=== PATIENT | male | born 1965 | race Caucasian/White ===

== ENCOUNTER 2024-11-28 14:55 | Inpatient (IN) | payer OTHER, SELFPAY ==
[2024-11-28 10:26] VITALS: BP 147/65
--- NOTE | 2024-11-28 11:39 | ED.MUSCINJ ---
Addendum entered and electronically signed by Horacio Vilchis MD 11/28/24 14:02:
Progressive pain swelling to the right elbow. Over weeks. History of chronic kidney disease.
On exam moderate swelling and warmth to the right elbow mostly posteriorly with some extension to the mid forearm. Able to rotate the elbow without difficulty. Some pain with flexion of the elbow but this appears to be more due to stretching.
Good distal pulses and color.
Impression is relatively low suspicion for septic arthritis. More likely olecranon bursitis/cellulitis. However with patient's significant medical issues warrants IV antibiotics and inpatient management
Original Note:
HPI-Injury
General
Chief Complaint: Musculo-Skeletal Complaint
Source: patient
Time Seen by Provider: 11/28/24 11:04
History of Present Illness-Injury
Initial Injury comments:
59-year-old male insulin-dependent diabetic with chronic kidney disease presents with increasing swelling and pain to the right elbow. He also notes his right leg is swollen. He was sent in by the family doctor. No known injury or trauma to the
elbow. He states it is quite painful to try to flex his elbow. He has a history of gout in his left toe. He notes chills without measurable fever. No vomiting. He is not sleeping because of the pain. No other complaints at this time
Phy Exam
Physical Exam
Physical Exam:
General: Well-appearing male no acute respiratory distress
HEENT: Normocephalic atraumatic
Heart: Regular rate and rhythm
Lungs: Clear
Injury Course
Orders/Labs/Results
Orders:
Orders
11/28/24 11:38
HYDROmorphone [Dilaudid] 0.5 mg IV NOW STA
CR Elbow - Right Min 3 Views Urgent
Comment:
Reason For Exam: pain, swelling
11/28/24 11:44
CRP [C-Reactive Protein] Urgent
Complete Blood Count/With Diff Urgent
Comprehensive Metabolic Panel Urgent
Sed Rate [Erythrocyte Sed Rate] Urgent
Uric Acid Urgent
11/28/24 13:31
Vancomycin [Vancocin] 2,000 mg 0.9% Sodium Chloride 500 ml [Nss] 500 ml IV NOW
Abnormal Lab Results
11/28/24
11:44
RBC 4.20 L 10^6/uL
(4.70-6.10)
Hgb 11.2 L g/dL
(13.0-18.0)
Hct 35.6 L %
(39.0-52.0)
MCH 26.7 L pg
(27.0-31.0)
MCHC 31.5 L g/dL
(33.0-37.0)
RDW 17.2 H %
(11.5-14.5)
MPV 11.2 H fL
(7.4-10.4)
Absolute Neuts (auto) 8.5 H 10^3/uL
(1.4-6.5)
Neutrophils % 78.8 H %
(42.2-75.2)
Lymphocytes % 13.0 L %
(20.5-51.1)
ESR 61 H mm/hour
(0-20)
BUN 40 H mg/dl
(9-20)
Creatinine 2.0 H mg/dL
(0.7-1.3)
Glucose 118 H mg/dl
(70-99)
C-Reactive Protein 69.80 H mg/L
(0.0-10.00)
11/28/24 11:44
11/28/24 11:44
*Pulse Oximetry
SaO2: 94
Oxygen Mode of Delivery: Room air
Patient hypoxic: no
*Critical Care Note
Total Time (30-74mins, 75-104mins- exclusive of procedures): Not Applicable
Update Note
Update Note:
Labs reviewed elevated inflammatory markers. x-ray of the right elbow negative. Exam most concerning for bursitis, olecranon bursitis perhaps with overlying cellulitis. He is insulin-dependent diabetic chronic kidney disease with worsening
symptoms. Discussed with emergency room attending feel up to keep the patient here in the hospital. IV vancomycin ordered.
ED Attending Note
-
Portions of this chart may have been created with voice recognition software.� Occasional wrong word or��sound alike� substitutions may have occurred due to the inherent limitations of voice recognition software.
Discharge Plan
Departure
Patient Disposition: Admit
Date of Disposition: 11/28/24
Time of Disposition: 13:33
Presentation/result/management discussed w/ accepting MD/DO: Hospitalist
Discharge Problem:
Bursitis, olecranon, Cellulitis
Prescriptions:
No Action
pioglitazone 15 MG tablet
15 mg PO DAILY
simvastatin 40 MG tablet
40 mg PO DAILY
metformin 1,000 MG tablet
1,000 mg PO BID
lisinopril-hydrochlorothiazide 1 EACH tablet
1 ea PO DAILY
varenicline tartrate [Chantix Starting Month ] 1 EACH tablets,dose pack
1 ea PO BID
Novolog Mix 70/30:
80 units SC BID
Referrals:
Chester Handley MD [Family Provider, Internal Medicine]
Interventions
Interventions:
*Risk Screen - Suicide Last Done: 11/28/24 10:26
*General Assessment Last Done: 11/28/24 10:26
*Neglect/Abuse Screening Last Done: 11/28/24 10:26
ED-Musculoskeletal Assessment Last Done: 11/28/24 11:50
Discharge Date and Time
Print Language: UKRAINIAN
[2024-11-28] MEDS: DILAUDID 0.5 MG IV ×3 (11:46→20:37)
[2024-11-28 11:53] LABS: Hematocrit 35.6 % (39.0-52.0); Hemoglobin 11.2 g/dL (13.0-18.0); Mean Corp Hgb Conc. 31.5 g/dL (33.0-37.0); Mean Corpuscular Volume 84.8 fL (80.0-94.0); Nucleated Red Blood Cells % 0 % (-); Platelet Count 197 10^3/uL (130-400); Red Cell Dist. Width 17.2 % (11.5-14.5)
[2024-11-28 12:38] LABS: ALT (SGPT) 22 U/L (0-50); AST (SGOT) 17 U/L (17-59); Albumin 3.9 g/dl (3.5-5.0); Alkaline Phosphatase 90 U/L (38-126); Blood Urea Nitrogen 40 mg/dl (9-20); Calcium 9.0 mg/dl (8.4-10.2); Carbon Dioxide 24 mmol/L (22-30); Glucose 118 mg/dl (70-99); Total Protein 6.8 g/dl (6.3-8.2); eGFR 37.27
[2024-11-28 12:40] LABS: C-Reactive Protein 69.80 mg/L (0.0-10.00)
[2024-11-28 13:07] LABS: Chloride 107 mmol/L (98-107); Sodium 142 mmol/L (135-145)
[2024-11-28 13:38] VITALS: BMI 49.8
--- NOTE | 2024-11-28 13:39 | HPS.HSE ---
Family Physician
-
Family Physician: Chester Handley
Chief Complaint
-
right elbown redness and swelling.
History of Present Illness
59-year-old male insulin-dependent diabetic with chronic kidney disease presents with increasing swelling and pain to the right elbow for past few weeks. patient denied any trauma. he rest his arm on chair, when reading books. it progressively got
worse for past few weeks. patient complained of pain radiating to his right shoulder. swelling to right arm. patient is not able to bent his right arm. he is complaining of chills for past few days. denied fever. he complained of ZAMORANO. denied dizzy or
syncope. denied chest pain, sob. denied abdominal pain,n,v,d. denied dysuria or hematuria. He also complained of right lower extremities edema
Patient received a dose of Dilaudid, vancomycin in the ER. Admitting for further manage
Medical History
Past Medical History
Past Medical History: Reports Other
Additional Past Medical History:
Hypertension
Type 2 diabetes
Hyperlipidemia
Gout
Past Surgical History: Reports Other
Additional Past Surgical History:
Amputation of fifth metatarsal right foot
Cholecystic
Appendectomy
Neck fusion
Carpal tunnel
Social History
Tobacco: Former Smoker
Alcohol: Occasional
Drug: None
Family History
Family History: Not pertinent
Allergies / Home Medications
Allergies reflects when Allergies were last updated in [facility].
Home Medications with original date entered in [facility]
Allergy/Medication List:
Allergies
Allergy/AdvReac Type Severity Reaction Status Date / Time
morphine Allergy Itching Verified 11/28/24 10:29
Home Medications
Novolog Mix 70/30: 80 units SC BID 06/13/10
lisinopril 20 mg-hydrochlorothiazide 25 mg tablet 1 ea PO DAILY 06/13/10
metformin 1,000 mg tablet 1,000 mg PO BID 06/13/10
pioglitazone 15 mg tablet 15 mg PO DAILY 06/13/10
simvastatin 40 mg tablet 40 mg PO DAILY 06/13/10
varenicline tartrate 0.5 mg (11)-1 mg (42) tablets in a dose pack (Chantix Starting Month Brian) 1 ea PO BID 06/13/10
Review of Systems
-
Constitutional: Reports No Symptoms
EENT: Reports No Symptoms
Respiratory: Reports No Symptoms
Cardiac: Reports No Symptoms
Abdomen/GI: Reports No Symptoms
: Reports No Symptoms
Musculoskeletal: Reports No Symptoms
Skin: Reports No Symptoms
Neurological: Reports No Symptoms
Endocrine: Reports No Symptoms
Hematologic/Lymphatic: Reports No Symptoms
Psych: Reports No Symptoms
Physical Exam
Vital Signs
Vital Signs
Temp Pulse Resp BP Pulse Ox
98.2 F 90 20 147/65 94
11/28/24 10:26 11/28/24 10:26 11/28/24 10:26 11/28/24 10:26 11/28/24 11:41
Physical Exam
General: Well Developed, Well Nourished and No Apparent Distress
HEENT: NormoCephalic, Moist mucous membranes and Atraumatic
Respiratory: Clear
Cardiac: S1/S2 and Regular Rhythm; No Murmur or Rub
GI: Soft, Non Tender, Non Distended and Normal Bowel Sounds; No Organomegaly
Rectal: Deferred by Provider
Musculoskeletal: No Clubbing, No Cyanosis and No Edema
Skin: Rash and Other (Right elbow swelling and redness)
Neuro: AO x 3 and Nonfocal/grossly intact
Laboratory Results
-
11/28/24 11:44
11/28/24 11:44
Laboratory Results
Total Bilirubin 0.7 mg/dl (0.2-1.3) 11/28/24 11:44
AST 17 U/L (17-59) 11/28/24 11:44
ALT 22 U/L (0-50) 11/28/24 11:44
Alkaline Phosphatase 90 U/L (38-126) 11/28/24 11:44
Data Reviewed
-
Diagnostic Radiology: Report Reviewed by me
Lab Data: Labs Reviewed by me
Impression/Plan
-
# Chronic bursitis/cellulitis of right elbow
# Right lower extremities edema
- IV vancomycin in the ER
-elbow x ray with no acute findings
- IV Ancef continued
- Tylenol as needed for fever or pain
- Obtain duplex of lower extremities
#acute kidney injury likely CKD
-cr 2.0
- Continue to monitor
# Type 2 diabetes
- regular 120 unit daily in am 50units lunch and 30pm
- Sliding scale
- Carb controlled diet
# Hyperlipidemia
- Hypertension
-asa, statin, doxazosin continued
-hold lisinopril due to ASUNCION
# DVT prophylaxis
- Heparin subcu
# CODE STATUS full code
-
[2024-11-28 13:47] LABS: Potassium 4.3 mmol/L (3.5-5.1); Uric Acid 12.5 mg/dl (3.5-8.5)
[2024-11-28] MEDS: VANCOCIN 540 MG IV (15:04)
--- NOTE | 2024-11-28 15:04 | W.PN.UPDATE ---
Update Note
Progress Note Update
This is an addendum to H&P written by Anna Gonzales on 11/28/2024. �Patient seen and examined independently with DETONATOR MAKER.
59-year-old male past medical history of obstructive sleep apnea on CPAP, diabetes, obesity, hypertension, hyperlipidemia, nephrolithiasis, C6/C7 anterior cervical discectomy fusion, gout, presenting with pain and swelling of the right elbow, right
leg swelling above the knee. �No trauma. �Chills without fever.
Labs show creatinine of 2, no recent for comparison. �CRP of 70. �Uric acid level of 12.5.
Elbow x-ray shows no joint effusion. �Moderate soft tissue swelling over the medial and dorsal aspects of the distal arm.
Patient with cellulitis, less likely septic olecranon bursitis of right elbow.
Patient given Vancomycin. Continue as cefazolin.
Check venous ultrasound right lower extremity to evaluate for DVT given swelling.
Creatinine of 2. �No recent for comparison. �Patient states that he had elevated creatinine recently that is improved. �Likely CKD but hold lisinopril.�
Patient with hyperuricemia possibly contributing to CKD. �Outpatient follow-up with nephrology.
[2024-11-28 16:11] VITALS: BP 128/76
[2024-11-28 16:12] VITALS: BMI 48.1
[2024-11-28] MEDS: NOVOLOG FLEXPEN-LOW RESISTANCE SC (16:33)
[2024-11-28 16:34] LABS: Glucose - Point of Care 74 mg/dl (70-99)
[2024-11-28] MEDS: LYRICA 100 MG PO ×2 (16:37→21:32)
[2024-11-28] MEDS: HUMULIN R U-500 (CONCENTRATED) 30 UNITS SC (17:33)
[2024-11-28] MEDS: ANCEF 10 IV (17:37)
--- NOTE | 2024-11-28 18:11 | PTCARENOTE ---
Arrived from the ED around 1600. Pt walked from stretcher to bed with rollator from home. Nursing assessment complete. Administered pain meds for right elbow. Oriented to room, will continue with plan of care.
[2024-11-28] MEDS: PEPCID 20 MG PO (20:31)
[2024-11-28] MEDS: HEPARIN 5000 UNITS SC (20:31)
[2024-11-28 21:20] LABS: Glucose - Point of Care 163 mg/dl (70-99)
[2024-11-28 21:29] VITALS: PULSE 84
[2024-11-28 23:00] VITALS: BP 118/56
[2024-11-29 00:04] VITALS: PULSE 76
[2024-11-29] MEDS: DILAUDID 0.5 MG IV ×5 (01:31→20:27)
[2024-11-29] MEDS: ANCEF 10 IV ×3 (01:31→17:29)
[2024-11-29 07:35] VITALS: BP 145/59
[2024-11-29] MEDS: ASPIR LOW (ENTERIC COATED) 81 MG PO (07:37)
[2024-11-29] MEDS: PEPCID 20 MG PO ×2 (07:37→20:27)
[2024-11-29] MEDS: CARDURA 4 MG PO (07:38)
[2024-11-29] MEDS: LIPITOR 40 MG PO (07:39)
[2024-11-29] MEDS: LYRICA 100 MG PO ×3 (07:39→21:24)
[2024-11-29] MEDS: TOPROL XL 50 MG PO (07:39)
[2024-11-29] MEDS: FOLVITE 0.4 MG PO (07:40)
[2024-11-29] MEDS: HEPARIN 5000 UNITS SC ×2 (07:40→20:27)
[2024-11-29 07:56] LABS: Glucose - Point of Care 174 mg/dl (70-99)
[2024-11-29 08:25] LABS: Blood Urea Nitrogen 44 mg/dl (9-20); Calcium 8.3 mg/dl (8.4-10.2); Carbon Dioxide 23 mmol/L (22-30); Chloride 108 mmol/L (98-107); Estimated Creatinine Clearance 64 ml/min; Glucose 168 mg/dl (70-99); Potassium 4.0 mmol/L (3.5-5.1); Sodium 140 mmol/L (135-145); eGFR 39.64
[2024-11-29] MEDS: NOVOLOG FLEXPEN-LOW RESISTANCE 1 UNITS SC (08:30)
[2024-11-29] MEDS: HUMULIN R U-500 (CONCENTRATED) 120 UNITS SC (08:31)
[2024-11-29 09:03] LABS: Glycohemoglobin (HgbA1c) 7.8 % (4.0-5.6)
--- NOTE | 2024-11-29 09:22 | PN.DE.MGMTRT ---
Insulin Management
- -
11/29/2024 Diabetes Management Consult
Patient admitted 11/28 with increased swelling and pain R elbow. PMH VIRGIL w/CPAP, obesity, CKD, diabetes, HTN, HLD, nephrolithiasis, gout, C6/C7 cervical fusion. Prior to admission was taking U-500 insulin 120 units in AM 50 units @ lunch and 30 to
40 units with dinner and Mounjaro 15 mg weeklu on Thursday. A1C
is 7.8%, cr 1.9, eGFr 39.64.
Patient is awake alert and oriented, oob in chair, able to discuss diabetes care. States he has had diabetes 40+ years. Took PO medications for about 15 years then required insulin. He sees Dr. Eisenberg, endocrine, ongoing for diabetes care.
Uses DexCom G7.
11/28 Glucose 74 to 163, receiving stated doses of insulin.
11/29 Fasting glucose 174. Will continue U-500 insulin 120 units with breakfast, 50 units with lunch and 30 units with dinner.
Discussed with nurse.
Will follow
Diabetes History
- -
Type of Diabetes: 2 requiring insulin
Pre-Admission Diabetes Regimen
11/28/24 11/29/24
11:44 07:28
Creatinine 2.0 H 1.9 H
Lab Results
Hemoglobin A1c 7.8 % (4.0-5.6) H 11/29/24 07:28
Insulin Pump Settings
IP Diabetes Regimen
11/28/24 11/28/24 11/28/24
11:44 16:33 21:19
Glucose 118 H
POC Glucose 74 163 H
11/29/24 11/29/24
07:28 07:55
Glucose 168 H
POC Glucose 174 H
Patient Education
--- NOTE | 2024-11-29 11:44 | CON.ORTHO ---
Consultation
-
Date/Time Consultation Requested: 11/29/24 @9am
Date/Time Consultation Performed: 11/29/24 @11:30am
Requesting Provider: Grace
Performing Provider: Joselyn Rodríguez PA-C, John Lopez MD
Reason for Consultation: right elbow pain
Consultation - Orthopedics
History
HPI: 59yo male admitted to [facility] for right elbow pain and swelling. He reports that this has been ongoing for a few weeks, but more recently has had increased pain. He denies any injury to the right elbow but does report that he reads
a lot and leans his elbows on the armrest of the chair. He has some discomfort with range of motion. He denies fever but does state that he has had occasional chills. He has a history of gout. He does report that his symptoms do seem improved today
compared to yesterday. He is able to bend his elbow more. He is left hand dominant.
PAST MEDICAL HISTORY: Hypertension, Type 2 diabetes on insulin, Hyperlipidemia, Gout, chronic kidney disease
PAST SURGICAL HISTORY: Amputation of fifth metatarsal right foot, Cholecystectomy, Appendectomy, Neck fusion, Carpal tunnel
SOCIAL HISTORY: denies tobacco, alcohol
FAMILY HISTORY: Noncontributory
REVIEW OF SYSTEMS: 12 point review of systems obtained and negative except those mentioned in the HPI
Allergies / Home Medications
Allergy/AdvReac Type Severity Reaction Status Date / Time
morphine Allergy Itching Verified 11/28/24 10:29
�Medication �Instructions �Recorded
aspirin 81 mg tablet,delayed 81 mg PO DAILY 11/28/24
release
atorvastatin 40 mg tablet (Lipitor) 40 mg PO DAILY 11/28/24
doxazosin 4 mg tablet 4 mg PO DAILY 11/28/24
famotidine 20 mg tablet (Pepcid) 20 mg PO BID 11/28/24
folic acid 400 mcg tablet 0.4 mg PO DAILY 11/28/24
insulin regular hum U-500 conc 500 30 - 40 unit SC QPM 11/28/24
unit/mL(3 mL) subcut pen (Humulin
R U-500 (Conc) Insulin Kwikpen)
insulin regular hum U-500 conc 500 50 unit SC DAILY@1200 11/28/24
unit/mL(3 mL) subcut pen (Humulin
R U-500 (Conc) Insulin Kwikpen)
insulin regular hum U-500 conc 500 120 unit SC DAILY 11/28/24
unit/mL(3 mL) subcut pen (Humulin
R U-500 (Conc) Insulin Kwikpen)
lisinopril 5 mg tablet 5 mg PO DAILY 11/28/24
metoprolol succinate 50 mg 50 mg PO DAILY 11/28/24
tablet,extended release 24 hr
(Toprol XL)
pregabalin 100 mg capsule (Lyrica) 100 mg PO TID 11/28/24
tirzepatide 15 mg/0.5 mL 15 mg SC EDEN 11/28/24
subcutaneous pen injector
(Mounjaro)
Vital Signs / Lab Results
Temp Pulse Resp BP Pulse Ox
97.8 F 74 18 145/59 93
11/29/24 07:35 11/29/24 07:38 11/29/24 07:35 11/29/24 07:38 11/29/24 08:04
11/28/24 11:44
11/29/24 07:28
LABS:
Uric Acid 12.5
RADIOGRAPHIC FINDINGS:
Xrays right elbow show no obvious acute fracture or dislocation.
PHYSICAL EXAM:
General: no acute distress
HEENT: NCAT, sclera anicteric, normal hearing
Heart: No JVD
Lungs: Normal work of breathing on room air
MSK: Focused exam of right elbow reveals skin intact with mild erythema. mild edema to elbow and right hand. slight warmth to elbow. mild tenderness generally about the elbow. no palpable fluid collection. able to perform full active and passive
flexion and extension with some discomfort. no pain with pronation/supination. sensation intact to light touch. cap refill <secs
Assessment / Plan
ASSESSMENT/PLAN:
Right elbow cellulitis vs gout
--Patient does report improvement in symptoms since yesterday. He does not have a palpable fluid collection and his range of motion has improved.
--Low suspicion for septic arthritis/bursitis. More likely cellulitis vs gout
--Continue with supportive measures as needed. Pain management as needed
--Continue with antibiotics per primary team
--He may be weight bearing as tolerated. Encourage range of motion of the right upper extremity as tolerated.
--Follow up outpatient in 1-2 week for re-evaluation
[2024-11-29 12:05] LABS: Glucose - Point of Care 129 mg/dl (70-99)
[2024-11-29] MEDS: HUMULIN R U-500 (CONCENTRATED) 50 UNITS SC (12:42)
[2024-11-29] MEDS: NOVOLOG FLEXPEN-LOW RESISTANCE SC ×2 (12:42→16:58)
--- NOTE | 2024-11-29 14:21 | W.PN.HOSP.TC ---
Today's Communication/Plan
-
Check x-ray of the knee
Start colchicine
Continue antibiotics for cellulitis
Assessment / Plan
Assessment / Plan
59-year-old with right elbow swelling. Denies any trauma
Patient is awake alert oriented
Cardiovascular system S1-S2 appreciated
Chest clear to auscultation
Abdomen soft and nontender
Right elbow mild redness at the elbow area no fluctuance noted
Right knee mild tenderness no redness or warmth
# Cellulitis of right elbow with bursitis vs Gout
X-ray without any acute findings
Antibiotics IV Ancef
Elevated uric acid level- ? Gout
Start colchicine and watch
Cannot use NSAIDS with kidney disease.
Ortho eval
# Right knee pain-ultrasound negative for DVT right lower extremity
Check x-ray
# Kidney injury-ASUNCION versus CKD
# Diabetes- Hemoglobin A1c- 7.8
Uses U-500 120 mg in the morning and 50 units at noon and 30 to 40 units every afternoon
Also on Mounjaro 15 mg on Sundays
Accu-Cheks and sliding scale coverage
Carb controlled diet
Diabetes management per [employer] CARD PRESS OPERATOR
# Hyperlipidemia-continue statin
# Hypertension-hold lisinopril
Continue doxazosin
# Obesity with a BMI of 48
# Sleep apnea-CPAP
# History of gout
# History of nephrolithiasis
# Ex-smoker
# DVT prophylaxis-subcutaneous heparin
# Full code
Part of this note was created using voice recognition system. Occasional wrong word or��sound alike� substitutions may have inadvertently occurred due to the inherent limitations of voice recognition software. If noted kindly bring it to my
attention for correction.
Anticipated Discharge: 24 - 48 hours
Subjective/Interval History
-
Date of Service: November 29, 2024
Objective Data
-
Labs:
Laboratory Results
11/29/24
07:28
Sodium 140
Potassium 4.0
Chloride 108 H
Carbon Dioxide 23
BUN 44 H
Creatinine 1.9 H
Glucose 168 H
Calcium 8.3 L
Vital Signs:
Vital Signs
Temp Pulse Resp BP Pulse Ox
97.8 F 74 18 145/59 93
11/29/24 07:35 11/29/24 07:38 11/29/24 07:35 11/29/24 07:38 11/29/24 08:04
I&O
11/28/24 11/29/24 11/30/24
06:59 06:59 06:59
Intake Total 480 / 480 960 / 960
Output Total 740 / 740
Balance 480 / 480 220 / 220
[2024-11-29] MEDS: COLCHICINE 0.6 MG PO (15:20)
[2024-11-29 15:32] VITALS: BP 132/67
[2024-11-29 16:43] LABS: Glucose - Point of Care 64 mg/dl (70-99)
[2024-11-29 17:02] LABS: Glucose - Point of Care 59 mg/dl (70-99)
[2024-11-29 17:23] LABS: Glucose - Point of Care 82 mg/dl (70-99)
[2024-11-29] MEDS: TYLENOL 650 MG PO (17:28)
[2024-11-29] MEDS: HUMULIN R U-500 (CONCENTRATED) SC (17:34)
[2024-11-29 19:23] LABS: Glucose - Point of Care 141 mg/dl (70-99)
--- NOTE | 2024-11-29 21:13 | PTCARENOTE ---
Patient was offered oral care, but refused. Patient was also offered body hygiene, but because they showered before coming to the hospital, they said they do not need body hygiene tonight either.
[2024-11-29 21:58] LABS: Glucose - Point of Care 163 mg/dl (70-99)
[2024-11-29 23:00] VITALS: BP 139/66
[2024-11-30] MEDS: ANCEF 10 IV ×3 (02:40→17:21)
[2024-11-30] MEDS: DILAUDID 0.5 MG IV ×4 (02:41→17:21)
[2024-11-30 03:08] LABS: Glucose - Point of Care 143 mg/dl (70-99)
[2024-11-30] MEDS: ZOFRAN 4 MG IV (04:47)
[2024-11-30 05:29] LABS: Hematocrit 33.0 % (39.0-52.0); Hemoglobin 10.7 g/dL (13.0-18.0); Mean Corp Hgb Conc. 32.4 g/dL (33.0-37.0); Mean Corpuscular Volume 84.0 fL (80.0-94.0); Platelet Count 175 10^3/uL (130-400); Red Cell Dist. Width 16.9 % (11.5-14.5)
[2024-11-30 06:23] LABS: Blood Urea Nitrogen 42 mg/dl (9-20); Calcium 8.6 mg/dl (8.4-10.2); Carbon Dioxide 24 mmol/L (22-30); Chloride 108 mmol/L (98-107); Estimated Creatinine Clearance 68 ml/min; Glucose 161 mg/dl (70-99); Potassium 4.3 mmol/L (3.5-5.1); Sodium 138 mmol/L (135-145); eGFR 42.30
--- NOTE | 2024-11-30 07:11 | W.PN.UPDATE ---
Update Note
Progress Note Update
Mr. Reinoso is resting comfortably in his chair this morning. He endorses tenderness about his elbow, but does note some improvement from yesterday.
Directed exam of the right elbow reveals hue of erythema over the olecranon and posterior elbow. Generalized edema throughout the right upper extremity. ROM from 90-180 degrees without pain, discomfort with motion past 90 degrees. Maintained ROM of
wrist and hand. NVID.
Right elbow cellulitis vs gout
--Wu has continued to make progress in the right direction in regards to his right elbow. I would recommend continued supportive measures as needed. Pain management as needed
--Continue with antibiotics per primary team.
--He may be weight bearing as tolerated. Encourage range of motion of the right upper extremity as tolerated.
--Follow up outpatient in 1-2 week for re-evaluation.
--Orthopedics will sign off for now. Please reach out with any additional questions or concerns.
[2024-11-30] MEDS: FOLVITE 0.4 MG PO (07:20)
[2024-11-30] MEDS: LYRICA 100 MG PO ×3 (07:20→21:26)
[2024-11-30] MEDS: LIPITOR 40 MG PO (07:20)
[2024-11-30] MEDS: PEPCID 20 MG PO ×2 (07:20→20:28)
[2024-11-30] MEDS: COLCHICINE 0.6 MG PO (07:20)
[2024-11-30] MEDS: ASPIR LOW (ENTERIC COATED) 81 MG PO (07:20)
[2024-11-30] MEDS: HEPARIN 5000 UNITS SC ×2 (07:21→20:30)
[2024-11-30] MEDS: CARDURA 4 MG PO (07:28)
[2024-11-30] MEDS: TOPROL XL 50 MG PO (07:29)
[2024-11-30 07:47] VITALS: BP 145/76
[2024-11-30 07:57] LABS: Glucose - Point of Care 185 mg/dl (70-99)
[2024-11-30] MEDS: NOVOLOG FLEXPEN-LOW RESISTANCE 1 UNITS SC (08:18)
[2024-11-30] MEDS: HUMULIN R U-500 (CONCENTRATED) 120 UNITS SC (08:19)
--- NOTE | 2024-11-30 08:20 | PN.DE.MGMTRT ---
Insulin Management
- -
11/30/2024 Diabetes Management Consult Follow up
Patient admitted 11/28 with increased swelling and pain R elbow. PMH VIRGIL w/CPAP, obesity, CKD, diabetes, HTN, HLD, nephrolithiasis, gout, C6/C7 cervical fusion. Prior to admission was taking U-500 insulin 120 units in AM 50 units @ lunch and 30 to
40 units with dinner and Mounjaro 15 mg weekly on Thursday. A1C
is 7.8%, cr 1.9, eGFr 39.64.
Patient is awake alert and oriented, oob in chair, able to discuss diabetes care. States he has had diabetes 40+ years. Took PO medications for about 15 years then required insulin. He sees Dr. Eisenberg, endocrine, ongoing for diabetes care.
Uses DexCom G7.
11/29 Fasting glucose 174. Received 120 units of U-500 in AM, pre lunch glucose 129 received 50 units U-500, pre dinner glucose 82 received no U-500.
11/30 Will continue U-500 insulin 120 units with breakfast, reduce lunch dose to 40 units and 15 units with dinner.
Patient admits he is eating much less food.
Discussed with nurse.
Will follow
Diabetes History
- -
Type of Diabetes: 2 requiring insulin
Pre-Admission Diabetes Regimen
11/29/24 11/30/24
05:18
Creatinine 1.9 H 1.8 H
Lab Results
Hemoglobin A1c 7.8 % (4.0-5.6) H 11/29/24 07:28
Insulin Pump Settings
IP Diabetes Regimen
11/29/24 11/29/24 11/29/24
12:04 16:42
Glucose 168 H
POC Glucose 129 H 64 L
11/29/24 11/29/24 11/29/24
17:00 17:23 19:21
Glucose
POC Glucose 59 L 82 141 H
0711/30/24 11/30/24
21:57 03:06 05:18
Glucose 161 H
POC Glucose 163 H 143 H
11/30/24
07:56
Glucose
POC Glucose 185 H
Patient Education
--- NOTE | 2024-11-30 08:21 | W.PN.HOSP.TC ---
Today's Communication/Plan
-
Analgesics adjusted
IR to see if they can do Arthrocentesis right knee- Fluid studies ordered.
Continue Colchicine
Assessment / Plan
Assessment / Plan
59-year-old with right elbow swelling. Denies any trauma
Patient is awake alert oriented
Cardiovascular system S1-S2 appreciated
Chest clear to auscultation
Abdomen soft and nontender
Right elbow mild redness at the elbow area no fluctuance noted-redness better. Edema of the whole right arm noted
Right knee mild tenderness . Complaining of more pain in the knee. Mild warmth noted. No redness
# Cellulitis of right elbow with bursitis vs Gout flare
X-ray without any acute findings
Antibiotics IV Ancef to be continued
Elevated uric acid level- ? Gout
Started colchicine yesterday. Patient states that symptoms are slightly better today
Cannot use NSAIDS with kidney disease.
Ortho eval appreciated
# Right knee pain-ultrasound negative for DVT right lower extremity
X-ray no fracture. Degenerative changes. Moderate suprapatellar effusion
I have asked interventional radiology to take a look and see if we can do arthrocentesis
Pain control with lidocaine patch, also on narcotics
# Kidney injury-ASUNCION versus CKD- IVF for now and watch creat. OP labs requested.
# Diabetes- Hemoglobin A1c- 7.8
Uses U-500 120 mg in the morning and 50 units at noon and 30 to 40 units every afternoon
Also on Mounjaro 15 mg on Sundays
Accu-Cheks and sliding scale coverage
Carb controlled diet
Diabetes management per BRICK OFF BEARER
# Hyperlipidemia-continue statin
# Hypertension-hold lisinopril
Continue doxazosin
# Obesity with a BMI of 48
# Sleep apnea-CPAP
# History of gout- Will start Allopurinol as OP, once flare is treated better.
# History of nephrolithiasis
# Ex-smoker
# DVT prophylaxis-subcutaneous heparin
# Full code
Still awaiting OP labs
D/W RN at bed side
D/W Ortho
PT OT
Part of this note was created using voice recognition system. Occasional wrong word or��sound alike� substitutions may have inadvertently occurred due to the inherent limitations of voice recognition software. If noted kindly bring it to my
attention for correction.
Anticipated Discharge: 24 - 48 hours
Subjective/Interval History
-
Date of Service: November 30, 2024
Objective Data
-
Labs:
Laboratory Results
11/30/24
05:18
WBC 8.3
Hgb 10.7 L
Hct 33.0 L
Plt Count 175
Sodium 138
Potassium 4.3
Chloride 108 H
Carbon Dioxide 24
BUN 42 H
Creatinine 1.8 H
Glucose 161 H
Calcium 8.6
Vital Signs:
Vital Signs
Temp Pulse Resp BP Pulse Ox
99.4 F 78 16 145/76 92
11/30/24 07:47 11/30/24 07:47 11/30/24 07:47 11/30/24 07:47 11/30/24 08:07
I&O
11/29/24 11/30/24 12/01/24
06:59 06:59 06:59
Intake Total 480 / 480 2880 / 2880
Output Total 1590 / 1590
Balance 480 / 480 1290 / 1290
[2024-11-30] MEDS: NSS 1000 IV (09:20)
[2024-11-30] MEDS: MIRALAX 17 GRAMS PO (10:18)
[2024-11-30] MEDS: SENOKOT 17.2 MG PO ×2 (10:19→20:28)
[2024-11-30] MEDS: COLACE 100 MG PO ×2 (10:19→20:28)
[2024-11-30] MEDS: LIDOCAINE 4% PATCH 2 PATCH TOPICAL (10:19)
[2024-11-30 11:23] LABS: Glucose - Point of Care 204 mg/dl (70-99)
[2024-11-30] MEDS: NOVOLOG FLEXPEN-LOW RESISTANCE 2 UNITS SC (11:35)
[2024-11-30] MEDS: HUMULIN R U-500 (CONCENTRATED) 40 UNITS SC (11:36)
--- NOTE | 2024-11-30 12:36 | W.PN.UPDATE ---
Update Note
Progress Note Update
Dr. Edwards reached out due to patient complaining of right knee pain. He reports he has always had problems with this knee, but it has gotten progressively worse over the last few days. He reports the knee is diffusely painful and tender, and he is
unable to bear weight. He does have a history of gout in his knees. Additionally, he does report pain in his right foot that has progressed in the last day. He describes the pain as 'internal'.
Directed exam of the right lower extremity reveals large effusion. No erythema, ecchymosis or lesions. Generalized edema about the right lower extremity and foot. Generalized tenderness about the anterior knee. No tenderness throughout the right
foot. Knee ROM significantly limited secondary to patient pain. Patient able to plantar and dorsiflex ankle. NVID.
After sterile preparation with Betadine, Wu's knee was aspirated at the bedside for 50 cc of cloudy, straw colored fluid. This was sent to the lab for further testing.
Right knee pain and effusion
--Patient has baseline right knee OA, but he developed increased pain and an effusion over the last few days. His knee was aspirated and sent for testing, but I am suspicious he is dealing with a gout flare. Continue to follow. Continue treatment
per primary. WBAT and ROM as tolerated.
--His foot is nontender on exam today. Could consider x-ray if pain persists. Pain control prn.
[2024-11-30 14:32] LABS: Body Fluid Second Tech BGK
[2024-11-30 14:48] VITALS: BP 134/72; PULSE 86; O2SAT 86
[2024-11-30 14:57] VITALS: BP 134/72; PULSE 86; O2SAT 86
[2024-11-30] MEDS: ULTRAM 50 MG PO ×2 (15:07→23:00)
--- NOTE | 2024-11-30 15:12 | W.PN.UPDATE ---
Update Note
Progress Note Update
Joint fluid right knee consistent with gout flare.
Will add a short course of steroids.
Increase PM dose t 20 units
Watch sugars
[2024-11-30] MEDS: DELTASONE 50 MG PO (15:43)
--- NOTE | 2024-11-30 15:43 | CM ---
CM following for discharge planning needs.
Pt admitted with R elbow cellulitis; also reporting his R knee is painful. Ortho consulted; Joint fluid in the right knee consistent with gout flare. Wu lives with his 2 daughters in a 2 story home with 2 entry steps (1+1). Bedroom is on
the 2nd level; Bathroom on both floors with shower.
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 Stairs are difficult for patient to negotiate.
PT and OT have evaluated and currently recommending transfer to SNF. CM to discuss SNF transfer with patient and spouse in AM.
[2024-11-30 15:52] VITALS: BP 132/74
[2024-11-30] MEDS: ROXICODONE 5 MG PO ×2 (16:12→20:28)
[2024-11-30 16:51] LABS: Glucose - Point of Care 124 mg/dl (70-99)
[2024-11-30] MEDS: HUMULIN R U-500 (CONCENTRATED) 20 UNITS SC (17:23)
[2024-11-30] MEDS: NOVOLOG FLEXPEN-LOW RESISTANCE SC (17:24)
[2024-11-30 21:33] LABS: Glucose - Point of Care 266 mg/dl (70-99)
[2024-11-30 23:00] VITALS: BP 144/71
[2024-12-01] MEDS: ANCEF 10 IV ×3 (02:35→17:51)
[2024-12-01] MEDS: ROXICODONE 5 MG PO ×2 (02:41→20:37)
[2024-12-01 05:45] LABS: Hematocrit 31.9 % (39.0-52.0); Hemoglobin 10.1 g/dL (13.0-18.0); Mean Corp Hgb Conc. 31.7 g/dL (33.0-37.0); Mean Corpuscular Volume 83.5 fL (80.0-94.0); Platelet Count 184 10^3/uL (130-400); Red Cell Dist. Width 16.4 % (11.5-14.5)
[2024-12-01 06:17] LABS: Blood Urea Nitrogen 39 mg/dl (9-20); Calcium 8.5 mg/dl (8.4-10.2); Carbon Dioxide 21 mmol/L (22-30); Chloride 106 mmol/L (98-107); Estimated Creatinine Clearance 68 ml/min; Glucose 252 mg/dl (70-99); Potassium 5.0 mmol/L (3.5-5.1); Sodium 136 mmol/L (135-145); eGFR 42.30
[2024-12-01 06:35] LABS: C-Reactive Protein 140.40 mg/L (0.0-10.00)
--- NOTE | 2024-12-01 07:15 | W.PN.UPDATE ---
Update Note
Progress Note Update
Orthopedic surgery:
Patient reports slight improvement in right knee pain. He is afebrile and right knee exam has small effusion with generalized pain to palpation. Passive motion 0 to 90 degrees with pain. Calf soft and nontender. Distal neurovascular was intact.
Gram stain/fluid culture no organisms preliminarily. Cell count noted WBC 20,968 with positive monosodium urate crystals. I see that Dr. Edwards has increased his steroids so hopefully this helps. Ice as needed as well. Consider cortisone
injection on an outpatient basis in a few weeks if pain persists. Orthopedics to sign off for now.
--- NOTE | 2024-12-01 07:36 | PN.DE.MGMTRT ---
Insulin Management
- -
12/01/2024 Diabetes Management Consult Follow up
Patient admitted 11/28 with increased swelling and pain R elbow. PMH VIRGIL w/CPAP, obesity, CKD, diabetes, HTN, HLD, nephrolithiasis, gout, C6/C7 cervical fusion. Prior to admission was taking U-500 insulin 120 units in AM 50 units @ lunch and 30 to
40 units with dinner and Mounjaro 15 mg weekly on Thursday. A1C
is 7.8%, cr 1.9, eGFr 39.64.
Patient is awake alert and oriented, oob in chair, able to discuss diabetes care. States he has had diabetes 40+ years. Took PO medications for about 15 years then required insulin. He sees Dr. Eisenberg, endocrine, ongoing for diabetes care.
Uses DexCom G7.
11/30 Will continue U-500 insulin 120 units with breakfast, reduce lunch dose to 40 units and 15 units with dinner. C/O increasing pain R knee and foot. R knee aspirated for fluid, started steroids, glucose up to 266 @ hs.
12/01 Fasting glucose 252, due to steroids will increase AM U-500 to 130 units, lunch dose to 45 units and dinner dose to 25 units.
Discussed with nurse.
Will follow
Diabetes History
- -
Type of Diabetes: 2 requiring insulin
Pre-Admission Diabetes Regimen
12/01/24
05:27
Creatinine 1.8 H
Lab Results
Hemoglobin A1c 7.8 % (4.0-5.6) H 11/29/24 07:28
Insulin Pump Settings
IP Diabetes Regimen
11/30/24 11/30/24 11/30/24
07:56 11:21 16:50
Glucose
POC Glucose 185 H 204 H 124 H
11/30/24 12/01/24
21:32 05:27
Glucose 252 H
POC Glucose 266 H
Patient Education
[2024-12-01 07:42] VITALS: BP 158/90
[2024-12-01 07:44] LABS: Glucose - Point of Care 244 mg/dl (70-99)
[2024-12-01] MEDS: NOVOLOG FLEXPEN-LOW RESISTANCE 2 UNITS SC ×3 (08:21→17:43)
[2024-12-01] MEDS: MIRALAX 17 GRAMS PO (08:21)
[2024-12-01] MEDS: LIDOCAINE 4% PATCH 2 PATCH TOPICAL (08:22)
[2024-12-01] MEDS: HUMULIN R U-500 (CONCENTRATED) 130 UNITS SC (08:23)
[2024-12-01] MEDS: COLACE 100 MG PO ×2 (08:26→20:39)
[2024-12-01] MEDS: FOLVITE 0.4 MG PO (08:26)
[2024-12-01] MEDS: ASPIR LOW (ENTERIC COATED) 81 MG PO (08:26)
[2024-12-01] MEDS: PEPCID 20 MG PO ×2 (08:26→20:37)
[2024-12-01] MEDS: SENOKOT 17.2 MG PO ×2 (08:26→20:39)
[2024-12-01] MEDS: LIPITOR 40 MG PO (08:26)
[2024-12-01] MEDS: CARDURA 4 MG PO (08:27)
[2024-12-01] MEDS: COLCHICINE 0.6 MG PO (08:28)
[2024-12-01] MEDS: HEPARIN 5000 UNITS SC ×2 (08:28→20:39)
[2024-12-01] MEDS: LYRICA 100 MG PO ×3 (08:29→20:38)
[2024-12-01] MEDS: TOPROL XL PO (08:38)
[2024-12-01] MEDS: ULTRAM 50 MG PO ×2 (08:55→16:33)
[2024-12-01] MEDS: HUMULIN R U-500 (CONCENTRATED) 45 UNITS SC (12:34)
[2024-12-01 12:35] LABS: Glucose - Point of Care 227 mg/dl (70-99)
--- NOTE | 2024-12-01 14:17 | W.PN.HOSP.TC ---
Today's Communication/Plan
-
Prednisone and colchicine
Add Allopurinol
PT
Assessment / Plan
Assessment / Plan
59-year-old with right elbow swelling. Denies any trauma
Patient is awake alert oriented
Cardiovascular system S1-S2 appreciated
Chest clear to auscultation
Abdomen soft and nontender
Right elbow not much redness, he has tenderness
Right knee mild tenderness better
# Cellulitis of right elbow with bursitis vs Gout flare
X-ray without any acute findings
Antibiotics IV Ancef to be continued
Elevated uric acid level- ? Gout
Started colchicine yesterday. Patient states that symptoms are slightly better today
Cannot use NSAIDS with kidney disease.
Ortho eval appreciated
# Right knee pain-ultrasound negative for DVT right lower extremity
X-ray no fracture. Degenerative changes. Moderate suprapatellar effusion
Pain control with lidocaine patch, also on narcotics
Arthrocentesis noted. Cultures are negative. Crystals consistent with gout flare.
Patient was not getting better with colchicine added steroids. He feels slightly better today
# ASUNCION on CKD-patient likely has CKD stage III labs from August 2024 creatinine 1.66 in September 2024 1.80
# Diabetes- Hemoglobin A1c- 7.8
Uses U-500 120 mg in the morning and 50 units at noon and 30 to 40 units every afternoon
Also on Mounjaro 15 mg on Sundays
Accu-Cheks and sliding scale coverage
Carb controlled diet
Diabetes management per [facility]PUT[employer]
Extra insulin with steroids
# Hyperlipidemia-continue statin
# Hypertension-restart lisinopril.Continue doxazosin
# Obesity with a BMI of 48
# Sleep apnea-CPAP
# History of gout- Will start Allopurinol
# History of nephrolithiasis
# Ex-smoker
# DVT prophylaxis-subcutaneous heparin
# Full code
OP labs
August 2024 1.66
September 2024 1.80
D/W RN at bed side
Called , went to message
PT OT
Part of this note was created using voice recognition system. Occasional wrong word or��sound alike� substitutions may have inadvertently occurred due to the inherent limitations of voice recognition software. If noted kindly bring it to my
attention for correction.
Anticipated Discharge: 24 - 48 hours
Subjective/Interval History
-
Date of Service: December 01, 2024
Objective Data
-
Labs:
Laboratory Results
12/01/24
05:27
WBC 8.9
Hgb 10.1 L
Hct 31.9 L
Plt Count 184
Sodium 136
Potassium 5.0
Chloride 106
Carbon Dioxide 21 L
BUN 39 H
Creatinine 1.8 H
Glucose 252 H
Calcium 8.5
Vital Signs:
Vital Signs
Temp Pulse Resp BP Pulse Ox
98.2 F 62 14 158/90 96
11/30/24 23:00 12/01/24 08:38 12/01/24 07:42 12/01/24 08:38 12/01/24 13:07
I&O
11/30/24 12/01/24 12/02/24
06:59 06:59 06:59
Intake Total 2880 / 2880 2160 / 2160
Output Total 1590 / 1590 1650 / 1650
Balance 1290 / 1290 510 / 510
[2024-12-01] MEDS: DELTASONE 50 MG PO (15:21)
[2024-12-01] MEDS: ZESTRIL 5 MG PO (15:21)
[2024-12-01] MEDS: ZYLOPRIM 100 MG PO (15:25)
[2024-12-01] MEDS: NOVOLOG FLEXPEN 5 UNITS SC (15:26)
--- NOTE | 2024-12-01 15:32 | PTCARENOTE ---
237 glucose for 5 units stat
[2024-12-01 15:33] VITALS: BP 164/81
[2024-12-01 15:37] LABS: Glucose - Point of Care 237 mg/dl (70-99)
[2024-12-01 16:38] LABS: Glucose - Point of Care 223 mg/dl (70-99)
[2024-12-01] MEDS: HUMULIN R U-500 (CONCENTRATED) 25 UNITS SC (17:44)
[2024-12-01 19:10] VITALS: BP 180/85
[2024-12-01 21:32] LABS: Glucose - Point of Care 301 mg/dl (70-99)
[2024-12-01] MEDS: DILAUDID 0.5 MG IV (22:40)
--- NOTE | 2024-12-01 23:00 | PTCARENOTE ---
Patient's HS glucose 301. Patient reported
--- NOTE | 2024-12-01 23:00 | PTCARENOTE ---
Patient's HS glucose 301. This RN explained typically regular insulin is given for a glucose >300. Patient states his insulin has been adjusted a few different times today and he does not want any additional insulin this evening. PUBLIC SERVICES LIBRARIAN made aware.
Will continue to monitor.
[2024-12-01 23:34] VITALS: BP 169/85
[2024-12-02] MEDS: ANCEF 10 IV ×3 (01:30→17:47)
[2024-12-02] MEDS: ROXICODONE 5 MG PO ×3 (01:31→22:43)
[2024-12-02] MEDS: DILAUDID 0.5 MG IV ×5 (02:52→23:49)
[2024-12-02 03:09] VITALS: PULSE 89
[2024-12-02 06:27] LABS: Blood Urea Nitrogen 39 mg/dl (9-20); Calcium 8.7 mg/dl (8.4-10.2); Carbon Dioxide 20 mmol/L (22-30); Chloride 104 mmol/L (98-107); Estimated Creatinine Clearance 87 ml/min; Glucose 326 mg/dl (70-99); Potassium 5.3 mmol/L (3.5-5.1); Sodium 133 mmol/L (135-145); eGFR 57.18
[2024-12-02 07:00] VITALS: BP 169/89
[2024-12-02] MEDS: LIDOCAINE 4% PATCH 2 PATCH TOPICAL (07:54)
[2024-12-02] MEDS: HUMULIN R U-500 (CONCENTRATED) 130 UNITS SC (07:55)
[2024-12-02] MEDS: MIRALAX 17 GRAMS PO (07:55)
[2024-12-02] MEDS: COLACE 100 MG PO ×2 (07:56→19:49)
[2024-12-02] MEDS: DELTASONE 40 MG PO (07:56)
[2024-12-02] MEDS: TOPROL XL 50 MG PO (07:56)
[2024-12-02] MEDS: ASPIR LOW (ENTERIC COATED) 81 MG PO (07:56)
[2024-12-02] MEDS: FOLVITE 0.4 MG PO (07:57)
[2024-12-02] MEDS: NOVOLOG FLEXPEN-LOW RESISTANCE 4 UNITS SC ×2 (07:57→12:32)
[2024-12-02] MEDS: COLCHICINE 0.6 MG PO (07:57)
[2024-12-02] MEDS: CARDURA 4 MG PO (07:57)
[2024-12-02] MEDS: ZESTRIL 5 MG PO (07:57)
[2024-12-02] MEDS: ZYLOPRIM 100 MG PO (07:58)
[2024-12-02] MEDS: SENOKOT 17.2 MG PO ×2 (07:58→19:48)
[2024-12-02] MEDS: HEPARIN 5000 UNITS SC ×2 (07:58→19:48)
[2024-12-02] MEDS: LIPITOR 40 MG PO (07:59)
[2024-12-02] MEDS: LYRICA 100 MG PO ×3 (07:59→21:05)
[2024-12-02] MEDS: PEPCID 20 MG PO ×2 (08:00→19:48)
[2024-12-02] MEDS: LOKELMA 10 GRAM PO (10:21)
[2024-12-02 12:16] LABS: Glucose - Point of Care 328 mg/dl (70-99)
[2024-12-02] MEDS: HUMULIN R U-500 (CONCENTRATED) 45 UNITS SC (12:31)
--- NOTE | 2024-12-02 13:02 | W.PN.HOSP.TC ---
Today's Communication/Plan
-
Insulin adjusted
Continue steroids
Continue allopurinol
SNF
Assessment / Plan
Assessment / Plan
59-year-old with right elbow swelling. Denies any trauma
Patient is awake alert oriented
Cardiovascular system S1-S2 appreciated
Chest clear to auscultation
Abdomen soft and nontender
Right elbow no redness, increased range of motion tenderness much better
Right knee mild tenderness better. Increase range of motion
Bilateral lower extremity edema
# Cellulitis of right elbow with out flare
X-ray without any acute findings
Antibiotics IV Ancef to be continued
Started colchicine . Patient states that symptoms are slightly better today
Cannot use NSAIDS with kidney disease.
Ortho eval appreciated
# Right knee pain-ultrasound negative for DVT right lower extremity
X-ray no fracture. Degenerative changes. Moderate suprapatellar effusion
Pain control with lidocaine patch, also on narcotics
Arthrocentesis noted. Cultures are negative. Crystals consistent with gout flare.
Patient was not getting better with colchicine added steroids. He feels slightly better today after adding steroids
Increased range of motion
Allopurinol started
# ASUNCION on CKD-patient likely has CKD stage III labs from August 2024 creatinine 1.66 in September 2024 1.80. Creatinine 1.4 today
# Mild Hyperkalemia- Lokelma
# Diabetes- Hemoglobin A1c- 7.8
Uses U-500 120 mg in the morning and 50 units at noon and 30 to 40 units every afternoon as outpatient
Increased to to 130 units in the morning, 50 units at noon, 30 units every night
Also on Mounjaro 15 mg on Sundays
Accu-Cheks and sliding scale coverage
Carb controlled diet
Diabetes management per [employer]
Extra insulin with steroids
# Hyperlipidemia-continue statin
# Hypertension-restarted lisinopril.Continue doxazosin
# Obesity with a BMI of 48
# Sleep apnea-CPAP
# History of gout-continue Allopurinol
# History of nephrolithiasis
# Ex-smoker
# DVT prophylaxis-subcutaneous heparin
# Full code
OP labs
August 2024 1.66
September 2024 1.80
D/W RN at bed side
Called , went to message again today. Left message.
PT OT noted, recommending SNF
Discussed with case management
Part of this note was created using voice recognition system. Occasional wrong word or��sound alike� substitutions may have inadvertently occurred due to the inherent limitations of voice recognition software. If noted kindly bring it to my
attention for correction.
Anticipated Discharge: 24 - 48 hours
Subjective/Interval History
-
Date of Service: December 02, 2024
Objective Data
-
Labs:
Laboratory Results
12/02/24
05:37
Sodium 133 L
Potassium 5.3 H
Chloride 104
Carbon Dioxide 20 L
BUN 39 H
Creatinine 1.4 H
Glucose 326 H
Calcium 8.7
Vital Signs:
Vital Signs
Temp Pulse Resp BP Pulse Ox
98.0 F 66 20 169/89 93
12/02/24 07:00 12/02/24 07:00 12/02/24 07:00 12/02/24 07:00 12/02/24 07:00
I&O
12/01/24 12/02/24 12/03/24
06:59 06:59 06:59
Intake Total 2160 / 2160 900 / 900
Output Total 1650 / 1650
Balance 510 / 510 900 / 900
[2024-12-02] MEDS: NOVOLOG FLEXPEN 8 UNITS SC (14:09)
--- NOTE | 2024-12-02 14:53 | CM ---
Reviewed the chart notes and spoke with the patient at the bedside and spouse via face time. Discussed area SNFs. Patient's spouse and patient agreeable to referrals being sent to [facility], and [facility]
continues to be available to patient/family and is monitoring medical plan for needs at discharge.
Plan: Discharge to SNF/rehab once bed secured and auth obtained.
[2024-12-02 15:00] VITALS: BP 168/66
[2024-12-02 17:22] LABS: Glucose - Point of Care 295 mg/dl (70-99)
[2024-12-02] MEDS: HUMULIN R U-500 (CONCENTRATED) 30 UNITS SC (17:31)
[2024-12-02] MEDS: NOVOLOG FLEXPEN-LOW RESISTANCE 3 UNITS SC (17:46)
[2024-12-02 20:37] LABS: Glucose - Point of Care 368 mg/dl (70-99)
[2024-12-02] MEDS: NOVOLOG FLEXPEN 5 UNITS SC (21:07)
[2024-12-02 23:06] LABS: Glucose - Point of Care 363 mg/dl (70-99)
[2024-12-02 23:24] VITALS: BP 145/88
[2024-12-02] MEDS: NOVOLOG FLEXPEN 7 UNITS SC (23:44)
[2024-12-03 00:30] VITALS: PULSE 88
[2024-12-03] MEDS: ANCEF 10 IV ×2 (01:55→11:32)
[2024-12-03 02:00] LABS: Glucose - Point of Care 279 mg/dl (70-99)
[2024-12-03] MEDS: ROXICODONE 5 MG PO ×3 (06:19→20:49)
[2024-12-03 07:00] VITALS: BP 154/75
[2024-12-03 07:47] LABS: Glucose - Point of Care 192 mg/dl (70-99)
[2024-12-03] MEDS: COLCHICINE 0.6 MG PO (08:30)
[2024-12-03] MEDS: TOPROL XL 50 MG PO (08:30)
[2024-12-03] MEDS: LYRICA 100 MG PO ×3 (08:30→21:31)
[2024-12-03] MEDS: ASPIR LOW (ENTERIC COATED) 81 MG PO (08:30)
[2024-12-03] MEDS: CARDURA 4 MG PO (08:30)
[2024-12-03] MEDS: SENOKOT 17.2 MG PO ×2 (08:30→20:48)
[2024-12-03] MEDS: LIPITOR 40 MG PO (08:30)
[2024-12-03] MEDS: ZESTRIL 5 MG PO (08:31)
[2024-12-03] MEDS: FOLVITE 0.4 MG PO (08:31)
[2024-12-03] MEDS: ZYLOPRIM 100 MG PO (08:31)
[2024-12-03] MEDS: PEPCID 20 MG PO ×2 (08:31→20:47)
[2024-12-03] MEDS: LIDOCAINE 4% PATCH 2 PATCH TOPICAL (08:32)
[2024-12-03] MEDS: HEPARIN 5000 UNITS SC ×2 (08:32→20:47)
[2024-12-03] MEDS: COLACE 100 MG PO ×2 (08:32→20:47)
[2024-12-03] MEDS: MIRALAX 17 GRAMS PO (08:33)
[2024-12-03] MEDS: NOVOLOG FLEXPEN-LOW RESISTANCE 1 UNITS SC (08:33)
[2024-12-03] MEDS: HUMULIN R U-500 (CONCENTRATED) 135 UNITS SC (08:34)
[2024-12-03] MEDS: ULTRAM 50 MG PO ×2 (09:06→15:28)
[2024-12-03 09:52] LABS: Blood Urea Nitrogen 41 mg/dl (9-20); C-Reactive Protein 32.50 mg/L (0.0-10.00); Calcium 9.0 mg/dl (8.4-10.2); Carbon Dioxide 27 mmol/L (22-30); Chloride 103 mmol/L (98-107); Estimated Creatinine Clearance 94 ml/min; Glucose 175 mg/dl (70-99); Potassium 4.5 mmol/L (3.5-5.1); Sodium 137 mmol/L (135-145); Uric Acid 8.6 mg/dl (3.5-8.5); eGFR > 60.00
--- NOTE | 2024-12-03 10:46 | W.PN.HOSP.TC ---
Addendum entered and electronically signed by Keshia Edwards MD 12/04/24 15:01:
spoke to on [phone] and updated.
Original Note:
Today's Communication/Plan
-
1 dose of prednisone today
Encouraged to keep legs elevated
Continue compression therapy
1 dose of Lasix today
Change antibiotics to p.o.
PT to evaluate
Possible DC tomorrow
Assessment / Plan
Assessment / Plan
59-year-old with right elbow swelling. Denies any trauma
Patient is awake alert oriented
Cardiovascular system S1-S2 appreciated
Chest clear to auscultation
Abdomen soft and nontender
Right elbow no redness, increased range of motion tenderness much better
Right knee mild tenderness better. Increase range of motion
Bilateral lower extremity edema
# Cellulitis of right elbow with out flare
X-ray without any acute findings
Antibiotics to be changed to p.o. cellulitis much better to be continued
Started colchicine .
Cannot use NSAIDS with kidney disease.
Ortho eval appreciated
# Right knee pain-ultrasound negative for DVT right lower extremity
X-ray no fracture. Degenerative changes. Moderate suprapatellar effusion
Pain control with lidocaine patch, also on narcotics
Arthrocentesis noted. Cultures are negative. Crystals consistent with gout flare.
Patient was not getting better with colchicine added steroids. He feels slightly better today after adding steroids
Increased range of motion
Allopurinol started
Inflammatory markers as well as Allopurinol down.
Patient always sits with his legs hanging down. Despite me instructing him to keep the legs elevated. This is causing edema
Trial of 1 dose of Lasix today
Continue Dennis bandages
# ASUNCION on CKD-patient likely has CKD stage III labs from August 2024 creatinine 1.66 in September 2024 1.80. Creatinine 1.4 today. Trial of 1 dose of Lasix
# Mild Hyperkalemia- Lokelma
# Diabetes- Hemoglobin A1c- 7.8
Uses U-500 120 mg in the morning and 50 units at noon and 30 to 40 units every afternoon as outpatient
Increased to to 135 units in the morning, 50 units at noon, 30 units every night
Also on Mounjaro 15 mg on Sundays
Accu-Cheks and sliding scale coverage
Carb controlled diet
Diabetes management per TEACHING MANAGER
Extra insulin with steroids
# Hyperlipidemia-continue statin
# Hypertension-restarted lisinopril.Continue doxazosin
# Obesity with a BMI of 48
# Sleep apnea-CPAP
# History of gout-continue Allopurinol . Uric acid much better
# History of nephrolithiasis
# Ex-smoker
# DVT prophylaxis-subcutaneous heparin
# Full code
OP labs
August 2024 1.66
September 2024 1.80
D/W RN at bed side
Called , went to message again today.
PT OT noted, recommending SNF
Discussed with case management
Part of this note was created using voice recognition system. Occasional wrong word or��sound alike� substitutions may have inadvertently occurred due to the inherent limitations of voice recognition software. If noted kindly bring it to my
attention for correction.
Anticipated Discharge: Within 24 hours
Subjective/Interval History
-
Date of Service: December 03, 2024
Objective Data
-
Labs:
Laboratory Results
12/03/24
06:39
Sodium 137
Potassium 4.5
Chloride 103
Carbon Dioxide 27
BUN 41 H
Creatinine 1.3
Glucose 175 H
Calcium 9.0
Vital Signs:
Vital Signs
Temp Pulse Resp BP Pulse Ox
98.1 F 58 18 154/75 100
12/03/24 07:00 12/03/24 07:00 12/03/24 07:00 12/03/24 07:00 12/03/24 07:00
I&O
12/02/24 12/03/24 12/04/24
06:59 06:59 06:59
Intake Total 900 / 900 1959 / 1959
Output Total 3700 / 3700
Balance 900 / 900 -1740 / -1740
[2024-12-03] MEDS: DELTASONE 30 MG PO (11:31)
[2024-12-03 11:42] LABS: Glucose - Point of Care 221 mg/dl (70-99)
[2024-12-03] MEDS: LASIX 20 MG IV (12:19)
[2024-12-03] MEDS: NOVOLOG FLEXPEN-LOW RESISTANCE 2 UNITS SC (12:19)
[2024-12-03] MEDS: HUMULIN R U-500 (CONCENTRATED) 50 UNITS SC (12:20)
[2024-12-03 15:00] VITALS: BP 155/99
[2024-12-03 16:54] LABS: Glucose - Point of Care 259 mg/dl (70-99)
[2024-12-03] MEDS: HUMULIN R U-500 (CONCENTRATED) 30 UNITS SC (17:00)
[2024-12-03] MEDS: NOVOLOG FLEXPEN-LOW RESISTANCE 3 UNITS SC (17:01)
[2024-12-03 20:41] LABS: Glucose - Point of Care 376 mg/dl (70-99)
[2024-12-03] MEDS: CEFTIN 500 MG PO (20:47)
[2024-12-03] MEDS: NOVOLOG FLEXPEN 5 UNITS SC (21:31)
[2024-12-03 23:05] VITALS: PULSE 85
[2024-12-03 23:49] VITALS: BP 160/78
[2024-12-04 02:45] VITALS: PULSE 88
[2024-12-04 07:00] VITALS: BP 165/88
[2024-12-04 07:47] LABS: Blood Urea Nitrogen 46 mg/dl (9-20); Calcium 8.9 mg/dl (8.4-10.2); Carbon Dioxide 26 mmol/L (22-30); Chloride 104 mmol/L (98-107); Estimated Creatinine Clearance 87 ml/min; Glucose 165 mg/dl (70-99); Potassium 4.7 mmol/L (3.5-5.1); Sodium 136 mmol/L (135-145); eGFR 57.18
[2024-12-04 08:10] LABS: Glucose - Point of Care 176 mg/dl (70-99)
[2024-12-04] MEDS: LIDOCAINE 4% PATCH 2 PATCH TOPICAL (09:25)
[2024-12-04] MEDS: HUMULIN R U-500 (CONCENTRATED) 135 UNITS SC (09:28)
[2024-12-04] MEDS: CEFTIN 500 MG PO ×2 (09:32→20:59)
[2024-12-04] MEDS: CARDURA 4 MG PO (09:32)
[2024-12-04] MEDS: LIPITOR 40 MG PO (09:32)
[2024-12-04] MEDS: SENOKOT 17.2 MG PO ×2 (09:33→21:00)
[2024-12-04] MEDS: ZYLOPRIM 100 MG PO (09:33)
[2024-12-04] MEDS: TOPROL XL 50 MG PO (09:33)
[2024-12-04] MEDS: PEPCID 20 MG PO ×2 (09:33→21:01)
[2024-12-04] MEDS: MIRALAX 17 GRAMS PO (09:33)
[2024-12-04] MEDS: COLACE 100 MG PO ×2 (09:33→21:01)
[2024-12-04] MEDS: HEPARIN 5000 UNITS SC ×2 (09:34→21:01)
[2024-12-04] MEDS: NOVOLOG FLEXPEN-LOW RESISTANCE 1 UNITS SC ×2 (09:36→13:22)
[2024-12-04] MEDS: ZESTRIL 5 MG PO ×2 (09:43→13:41)
[2024-12-04] MEDS: LYRICA 100 MG PO ×3 (09:43→21:13)
[2024-12-04] MEDS: COLCHICINE 0.6 MG PO (09:43)
[2024-12-04] MEDS: ASPIR LOW (ENTERIC COATED) 81 MG PO (09:44)
[2024-12-04] MEDS: DELTASONE PO (09:46)
[2024-12-04 10:13] VITALS: BP 145/76; BP 175/91; PULSE 66
[2024-12-04] MEDS: ROXICODONE 5 MG PO ×3 (10:51→21:12)
[2024-12-04] MEDS: FOLVITE 0.4 MG PO (10:52)
[2024-12-04 12:18] LABS: Glucose - Point of Care 165 mg/dl (70-99)
[2024-12-04] MEDS: HUMULIN R U-500 (CONCENTRATED) 50 UNITS SC (13:23)
--- NOTE | 2024-12-04 14:42 | W.PN.HOSP.TC ---
Today's Communication/Plan
-
Lasix
No steroids
Moving better
ECHO in am
Possible discharge tomorrow
Assessment / Plan
Assessment / Plan
59-year-old with right elbow swelling. Denies any trauma
Patient is awake alert oriented
Cardiovascular system S1-S2 appreciated
Chest clear to auscultation
Abdomen soft and nontender
Right elbow no redness, increased range of motion tenderness much better
Right knee mild tenderness better. Increase range of motion
Bilateral lower extremity edema better with lasix
# Cellulitis of right elbow with out flare
X-ray without any acute findings
Antibiotics to be changed to p.o. cellulitis much better to be continued
Started colchicine .
Cannot use NSAIDS with kidney disease.
Ortho eval appreciated
# Right knee pain-ultrasound negative for DVT right lower extremity
X-ray no fracture. Degenerative changes. Moderate suprapatellar effusion
Pain control with lidocaine patch, also on narcotics
Arthrocentesis noted. Cultures are negative. Crystals consistent with gout flare.
Patient was not getting better with colchicine added steroids.
Inflammatory markers better. Steroids discontinued. Continue colchicine
Increased range of motion
Allopurinol started
Inflammatory markers as well as Allopurinol down.
Patient always sits with his legs hanging down. Despite me instructing him to keep the legs elevated. This is causing edema
Status post 1 dose of Lasix on 12/03/2024
Continue Dennis bandages and elevate even though I suspect he is going to be noncompliant
# ASUNCION on CKD-patient likely has CKD stage III labs from August 2024 creatinine 1.66 in September 2024 1.80. Creatinine 1.4 today.
# Mild Hyperkalemia- Lokelma
# Diabetes- Hemoglobin A1c- 7.8
Uses U-500 120 mg in the morning and 50 units at noon and 30 to 40 units every afternoon as outpatient
Increased to to 135 units in the morning, 50 units at noon, 30 units every night
Also on Mounjaro 15 mg on Sundays
Accu-Cheks and sliding scale coverage
Carb controlled diet
Diabetes management per [employer]
Extra insulin with steroids
# Hyperlipidemia-continue statin
# Hypertension-restarted lisinopril.Continue doxazosin
# Obesity with a BMI of 48
# Sleep apnea-CPAP
# History of gout-continue Allopurinol . Uric acid much better
# History of nephrolithiasis
# Ex-smoker
# DVT prophylaxis-subcutaneous heparin
# Full code
OP labs
August 2024 1.66
September 2024 1.80
D/W RN at bed side
Part of this note was created using voice recognition system. Occasional wrong word or��sound alike� substitutions may have inadvertently occurred due to the inherent limitations of voice recognition software. If noted kindly bring it to my
attention for correction.
Anticipated Discharge: Within 24 hours
Subjective/Interval History
-
Date of Service: December 04, 2024
Objective Data
-
Labs:
Laboratory Results
12/04/24
06:17
Sodium 136
Potassium 4.7
Chloride 104
Carbon Dioxide 26
BUN 46 H
Creatinine 1.4 H
Glucose 165 H
Calcium 8.9
Vital Signs:
Vital Signs
Temp Pulse Resp BP Pulse Ox
98.4 F 62 18 165/88 97
12/04/24 07:00 12/04/24 07:00 12/04/24 07:00 12/04/24 07:00 12/04/24 07:00
I&O
12/03/24 12/04/24 12/05/24
06:59 06:59 06:59
Intake Total 1960 / 1959 1040 / 1040
Output Total 3700 / 3700 1900 / 1900 1000 / 1000
Balance -1740 / -1740 -860 / -860 -1000 / -1000
[2024-12-04] MEDS: LASIX 40 MG IV (14:59)
[2024-12-04 15:00] VITALS: BP 146/68
[2024-12-04 17:45] LABS: Glucose - Point of Care 247 mg/dl (70-99)
[2024-12-04] MEDS: HUMULIN R U-500 (CONCENTRATED) 30 UNITS SC (18:16)
[2024-12-04] MEDS: NOVOLOG FLEXPEN-LOW RESISTANCE 2 UNITS SC (18:18)
[2024-12-04 21:28] LABS: Glucose - Point of Care 189 mg/dl (70-99)
[2024-12-04 22:56] LABS: Urine Character Clear (Clear)
[2024-12-04 23:00] VITALS: BP 132/76
[2024-12-04 23:09] LABS: Urine Red Blood Cell 0-2 /HPF (0-2)
[2024-12-05 01:10] VITALS: PULSE 85
[2024-12-05] MEDS: ROXICODONE 5 MG PO ×2 (04:07→11:08)
[2024-12-05 07:39] VITALS: BP 117/70
--- NOTE | 2024-12-05 07:44 | PN.DE.MGMTRT ---
Insulin Management
- -
12/05/2024: Diabetes Management Follow up
Patient admitted 11/28 with increased swelling and pain R elbow. PMH VIRGIL w/CPAP, obesity, CKD, diabetes, HTN, HLD, nephrolithiasis, gout, C6/C7 cervical fusion. Prior to admission was taking U-500 insulin 120 units in AM 50 units @ lunch and 30 to
40 units with dinner and Mounjaro 15 mg weekly on Thursday. .States he has had diabetes 40+ years. Took PO medications for about 15 years then required insulin. He sees Dr. Eisenberg, endocrine, ongoing for diabetes care. Uses DexAdventi G7. A1C is 7.8%,
Cr 1.9-->1.4, eGFR 57.18 today
Patient is awake alert and oriented, offers no complaints, sitting up in chair, able to discuss diabetes care.
11/30 increased pain R knee and foot, s/p R knee arthrocentesis, started steroids, glucose up to 266 @ hs--> insulin doses adjusted.
12/04 steroids discontinued. FBG 79 this AM, Will adjust insulin dose back to his home dose of U-500 insulin 120 units with breakfast,50 units with lunch and 30 units with dinner. Will cont to follow and further adjust insulin dose if necessary.
Discussed with nurse.
Diabetes History
- -
Type of Diabetes: 2 requiring insulin
Pre-Admission Diabetes Regimen
12/04/24
06:17
Creatinine 1.4 H
Lab Results
Hemoglobin A1c 7.8 % (4.0-5.6) H 11/29/24 07:28
Insulin Pump Settings
IP Diabetes Regimen
12/04/24 12/04/24 12/04/24
06:17 08:07 12:17
Glucose 165 H
POC Glucose 176 H 165 H
12/04/24 12/04/24
17:43 21:27
Glucose
POC Glucose 247 H 189 H
Meal type: Dinner
Meal type: Lunch
Meal type: Breakfast
Amount consumed: 100%
Amount consumed: 100%
Amount consumed: 100%
Patient Education
[2024-12-05 07:47] LABS: Glucose - Point of Care 79 mg/dl (70-99)
[2024-12-05] MEDS: NOVOLOG FLEXPEN-LOW RESISTANCE SC ×3 (08:47→17:53)
[2024-12-05] MEDS: ZESTRIL 10 MG PO (08:51)
[2024-12-05] MEDS: ZYLOPRIM 100 MG PO (08:51)
[2024-12-05] MEDS: CARDURA 4 MG PO (08:52)
[2024-12-05] MEDS: CEFTIN 500 MG PO (08:52)
[2024-12-05] MEDS: LIPITOR 40 MG PO (08:52)
[2024-12-05] MEDS: SENOKOT 17.2 MG PO (08:52)
[2024-12-05] MEDS: TOPROL XL 50 MG PO (08:53)
[2024-12-05] MEDS: PEPCID 20 MG PO (08:53)
[2024-12-05] MEDS: COLACE 100 MG PO (08:53)
[2024-12-05] MEDS: COLCHICINE 0.6 MG PO (08:53)
[2024-12-05] MEDS: FOLVITE 0.4 MG PO (08:53)
[2024-12-05] MEDS: LYRICA 100 MG PO ×2 (08:58→15:27)
[2024-12-05] MEDS: ASPIR LOW (ENTERIC COATED) 81 MG PO (08:58)
[2024-12-05] MEDS: HEPARIN 5000 UNITS SC (08:59)
[2024-12-05] MEDS: LIDOCAINE 4% PATCH 2 PATCH TOPICAL (08:59)
[2024-12-05] MEDS: MIRALAX 17 GRAMS PO (09:00)
[2024-12-05] MEDS: HUMULIN R U-500 (CONCENTRATED) 120 UNITS SC (09:36)
[2024-12-05] MEDS: HUMULIN R U-500 (CONCENTRATED) SC ×2 (09:48→18:41)
[2024-12-05 11:38] LABS: Glucose - Point of Care 112 mg/dl (70-99)
[2024-12-05] MEDS: HUMULIN R U-500 (CONCENTRATED) 50 UNITS SC (11:57)
[2024-12-05 13:15] LABS: Glucose - Point of Care 308 mg/dl (70-99)
--- NOTE | 2024-12-05 15:19 | CM ---
TC from Anat, case reviewer at [facility] phone# [phone] offering assistance for d/c planning.
[2024-12-05 16:04] VITALS: BP 132/79
--- NOTE | 2024-12-05 16:05 | W.PN.HOSP.TC ---
Addendum entered and electronically signed by Keshia Edwards MD 12/05/24 16:38:
Dictation- [id number]
Original Note:
Today's Communication/Plan
-
Discharge
Assessment / Plan
Assessment / Plan
59-year-old with right elbow swelling. Denies any trauma
Patient is awake alert oriented
Cardiovascular system S1-S2 appreciated
Chest clear to auscultation
Abdomen soft and nontender
Right elbow no redness, increased range of motion tenderness much better
Right knee mild tenderness better. Increase range of motion
Bilateral lower extremity edema much better with lasix
# Cellulitis of right elbow with out flare
X-ray without any acute findings
Antibiotics to be changed to p.o. cellulitis much better to be continued
Continue colchicine .
Cannot use NSAIDS with kidney disease.
Ortho eval appreciated
# Right knee pain-ultrasound negative for DVT right lower extremity
X-ray no fracture. Degenerative changes. Moderate suprapatellar effusion
Pain control with lidocaine patch, also on narcotics
Arthrocentesis noted. Cultures are negative. Crystals consistent with gout flare.
Patient was not getting better with colchicine added steroids.
Inflammatory markers better. Steroids discontinued. Continue colchicine
He feels and looks much better
Allopurinol started
Inflammatory markers as well as Allopurinol down.
Patient always sits with his legs hanging down. Despite me instructing him to keep the legs elevated. This is causing edema
Status post 1 dose of Lasix on 12/03/2024 and 12/04/2024
Continue Dennis bandages and elevate even though I suspect he is going to be noncompliant
Echo technically difficult study EF 50 to 55% probably normal RV size and function. Probable small pericardial effusion to the left ventricle no significant valvular disease
# ASUNCION on CKD-patient likely has CKD stage III labs from August 2024 creatinine 1.66 in September 2024 1.80. Creatinine 1.4
# Mild Hyperkalemia- Lokelma
# Diabetes- Hemoglobin A1c- 7.8
Uses U-500 120 mg in the morning and 50 units at noon and 30 to 40 units every afternoon as outpatient
Increased to to 120 units in the morning, 50 units at noon, 30 units every night
Also on Mounjaro 15 mg on Sundays
Accu-Cheks and sliding scale coverage
Carb controlled diet
# Hyperlipidemia-continue statin
# Hypertension-restarted lisinopril.Continue doxazosin
# Obesity with a BMI of 48
# Sleep apnea-CPAP
# History of gout-continue Allopurinol . Uric acid much better
# History of nephrolithiasis
# Ex-smoker
# DVT prophylaxis-subcutaneous heparin
# Full code
OP labs
August 2024 1.66
September 2024 1.80
D/W RN at bed side
Discussed with yesterday and updated
Patient is aware about doing compression therapy for the legs and also elevate so that edema gets better.
He is also aware about lab work next week and also follow-up with PCP Dr. Handley.
He is requesting medicines for pain which I recommended that only be used very short-term as this can be addictive. He realizes that.
More than 30 minutes spent in discharge including
Final examination of the patient
Summarizing hospital stay
Instructions for continuing care to all relevant caregivers
Preparation of discharge records, prescriptions, and referral forms
Total time spent (in minutes): 37 min
Part of this note was created using voice recognition system. Occasional wrong word or��sound alike� substitutions may have inadvertently occurred due to the inherent limitations of voice recognition software. If noted kindly bring it to my
attention for correction.
Anticipated Discharge: Today
Subjective/Interval History
-
Date of Service: December 05, 2024
Objective Data
-
Vital Signs:
Vital Signs
Temp Pulse Resp BP Pulse Ox
97.9 F 93 12 132/79 93
12/05/24 16:04 12/05/24 16:04 12/05/24 16:04 12/05/24 16:04 12/05/24 16:04
I&O
12/04/24 12/05/24 12/06/24
06:59 06:59 06:59
Intake Total 1040 / 1040 1200 / 1200 1920 / 1920
Output Total 1900 / 1900 2900 / 2900 600 / 600
Balance -860 / -860 -1700 / -1700 1320 / 1320
[2024-12-05 17:01] LABS: Glucose - Point of Care 75 mg/dl (70-99)
[2024-12-05 18:28] LABS: Potassium 4.0 mmol/L (3.5-5.1)
[2024-12-05 19:13] VITALS: BP 160/79
--- NOTE | 2024-12-06 08:17 | W.DS.TRANS ---
DC Summary - Superintendent Operating
-
Discharge Instructions:
Discharge Diagnosis/Procedures Cellulitis right elbow
Gout flare right knee
acute kidney injury
CKD stage III
Diabetes
Hyperlipidemia
Hypertension
Sleep apnea
Diet Diabetic, Carb Controlled,2 Gram Sodium
Activity As tolerated
Driving Restrictions No driving for 1 week
Blood Work BMP in 1 week
Instructions:
Stand-Alone Forms:
Changes to Home Medications: Yes
Discharge Medications:
DC Medications w/original date entered in [facility]
aspirin 81 mg tablet,delayed release 81 mg PO DAILY Blood Clot Prevention/Tx 11/28/24
atorvastatin 40 mg tablet (Lipitor) 40 mg PO DAILY cholesterol 11/28/24
doxazosin 4 mg tablet 4 mg PO DAILY Urinary Issue/BP 11/28/24
famotidine 20 mg tablet (Pepcid) 20 mg PO BID Gastrointestinal Issue 11/28/24
folic acid 400 mcg tablet 0.4 mg PO DAILY Supplement 11/28/24
insulin regular hum U-500 conc 500 unit/mL(3 mL) subcut pen (Humulin R U-500 (Conc) Insulin Kwikpen) 30 - 40 unit SC QPM Diabetes 11/28/24
insulin regular hum U-500 conc 500 unit/mL(3 mL) subcut pen (Humulin R U-500 (Conc) Insulin Kwikpen) 50 unit SC DAILY@1200 Diabetes 11/28/24
insulin regular hum U-500 conc 500 unit/mL(3 mL) subcut pen (Humulin R U-500 (Conc) Insulin Kwikpen) 120 unit SC DAILY Diabetes 11/28/24
metoprolol succinate 50 mg tablet,extended release 24 hr (Toprol XL) 50 mg PO DAILY Blood Pressure 11/28/24
pregabalin 100 mg capsule (Lyrica) 100 mg PO TID Pain 11/28/24
tirzepatide 15 mg/0.5 mL subcutaneous pen injector (Mounjaro) 15 mg SC EDEN Diabetes 11/28/24
acetaminophen 500 mg tablet (Tylenol Extra Strength) 1,000 mg (2 x 500 mg) PO Q6HPRN PRN mild pain. #0 tabs 12/05/24
allopurinol 100 mg tablet 100 mg PO DAILY Gout #30 tabs 12/05/24
colchicine 0.6 mg tablet 0.6 mg PO DAILY Gout #30 tabs 12/05/24
docusate sodium 100 mg capsule 100 mg PO BID Constipation #30 caps 12/05/24
furosemide 20 mg tablet (Lasix) 20 mg PO MOFR Fluid retention/Swelling #30 tabs 12/05/24
lidocaine 4 % topical patch 2 patch topical DAILY elbow and knee right #0 ea 12/05/24
lisinopril 10 mg tablet 10 mg PO DAILY Blood pressure #30 tabs 12/05/24
oxycodone 5 mg tablet 5 mg PO Q6HPRN PRN moderate pain #16 tabs 12/05/24
polyethylene glycol 3350 17 gram oral powder packet 17 g PO DAILY Constipation #0 ea 12/05/24
sennosides 8.6 mg tablet (Regla-nanda) 17.2 mg (2 x 8.6 mg) PO HS Constipation #0 tabs 12/05/24
Home Medication Changes
Senokot, MiraLAX, oxycodone, colchicine, allopurinol are new
Increased dose of lisinopril
Pending Results: No
--- NOTE | 2024-12-06 10:33 | CM ---
Addendum entered by Loren Abebe 12/06/24 14:03:
Wu called back and we were able to discuss discharge plan. He requested [facility]. Referral entered in [facility]. Pt was interested in what medications were sent to his pharmacy. Pt provided with the medications that were sent.
Plan: Pt to resume [facility] services.
Original Note:
Pt discharged yesterday without being seen. Call placed to pt today and VM left requesting return call to discuss discharge needs.
Await return call to coordinate any discharge planning needs.
== END 2024-12-05 19:58 | disposition home health service (06) | DRG 603 ==
LOC: 3 WEST ACU 14:55
PROVIDERS: Physician Assistant; Registered Nurse; ADMITTING PHYSICIAN Hospitalist; ATTENDING PHYSICIAN Hospitalist; CONSULT PHYSICIAN Orthopaedic Surgery; EMERGENCY PHYSICIAN Emergency Medicine; FAMILY PHYSICIAN Internal Medicine
DX: L03.113 Cellulitis of right upper limb (principal); N17.9 Acute kidney failure, unspecified; Z68.42 Body mass index [BMI] 45.0-49.9, adult; Z87.891 Personal history of nicotine dependence; N18.9 Chronic kidney disease, unspecified; I12.9 Hypertensive chronic kidney disease with stage 1 through stage 4 chronic kidney disease, or unspecified chronic kidney disease; E11.22 Type 2 diabetes mellitus with diabetic chronic kidney disease; E78.5 Hyperlipidemia, unspecified; Z79.82 Long term (current) use of aspirin; E66.9 Obesity, unspecified; E87.5 Hyperkalemia
CPT/HCPCS: 73080; 73564; 80048; 80053; 81003; 81015; 82945; 82962; 83036; 84132; 84550; 85025; 85027; 85652; 86140; 87015; 87070; 87205; 89051; 89060; 93306; 93971; 94660; 96374; 97116; 97163; 97167; 97530; 97535; 99285; Q9950